=== PATIENT | female | born 1965 | race African-American/Black ===

== ENCOUNTER 2018-06-18 14:32 | Emergency (ER) | payer MEDICAID ==
[~2018-06-18] VITALS: Ht 165.1 cm; Wt 63.5 kg
[~2018-06-18 14:32] MED LIST: ABILIFY5 MG PO; MOTRIN400 MG PO
[2018-06-18] MEDS ORDERED: SEROQUEL100 MG ORAL (14:52)
[2018-06-18] MEDS ORDERED: Morphine Sulfate 4mg/ml Inj (IV/IM USE ONLY) IVP ONE (15:15)
[2018-06-18] MEDS ORDERED: Methocarbamol 750mg tab ORAL ONE (15:15)
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
[2018-06-18 15:22] VITALS: BP 129/87
--- NOTE | 2018-06-18 15:36 | Diagnostic Imaging Report ---
Indication: Headache Technique: Contiguous 5 mm thick transaxial imaging of the head obtained in a Siemens Sensation [address] scanner. Soft tissue and bone windows generated. Automatic Exposure Control was utilized. Total Dose length Product (DLP): 1414.[address] Dose Index Volume (CTDIvol): 70.38 mGy Comparison: none Findings: The size and configuration of the cortical sulci, basal cisterns, and ventricles are within normal limits for age. There is no mass effect, midline shift, or edema identified. There is no evidence of acute hemorrhage or abnormal intra-axial or extra-axial fluid collections. The bones and soft tissues are unremarkable. Impression: No mass effect, edema or acute bleed. The CT scanner at [facility] is accredited by the [employer] and the scans are performed using dose optimization techniques as appropriate to a performed exam including Automatic Exposure control.
--- NOTE | 2018-06-18 15:50 | Diagnostic Imaging Report ---
Indication: Neck pain. Technique: Continuous helical imaging of the cervical spine was obtained transaxially from the skull base to the upper thoracic spine. 2-D coronal and sagittal reformatted images were obtained. Automatic Exposure Control was utilized. Total Dose length Product (DLP): 284.[address] Dose Index Volume (CTDIvol): 13.53 mGy Comparison: None Findings: There is narrowing of the C5-6 disc with moderate endplate osteophyte formation, mild retrolisthesis and the narrowing of the neural foramen. C4-5 shows a mild anterolisthesis and is associated with uncovertebral spur formation and bilateral foraminal stenosis. There is some breathing motion artifact present on the examination. There is no fracture or soft tissue swelling identified. IMPRESSION: No acute injury appreciated. Degenerative spondylosis as described above at C4-5 and C5-6. Motion artifacts The CT scanner at [facility] is accredited by the [employer] and the scans are performed using dose optimization techniques as appropriate to a performed exam including Automatic Exposure control.
[2018-06-18 15:53] LABS: BASOPHILS % (AUTO) 1.2 % (0.0-2.0); EOSINOPHILS % (AUTO) 1.3 % (0.0-3.0); HEMATOCRIT 43.5 % (37.0-47.0); HEMOGLOBIN 14.3 G/DL (12.0-16.0); LYMPHOCYTES % (AUTO) 25.4 % (20.0-45.0); MEAN CORPUSCULAR VOLUME 94 FL (80-99); MONOCYTES % (AUTO) 7.2 % (1.0-10.0); NEUTROPHILS % (AUTO) 64.9 % (45.0-75.0); PLATELET COUNT 298 K/UL (150-450); RED BLOOD COUNT 4.63 M/UL (4.20-5.40); RED CELL DISTRIBUTION WIDTH 12.2 % (11.6-14.8)
[2018-06-18 15:58] LABS: ANION GAP 11 mmol/L (5-15); BLOOD UREA NITROGEN 11 mg/dL (7-18); CALCIUM 10.7 MG/DL (8.5-10.1); CARBON DIOXIDE 22 MMOL/L (21-32); CHLORIDE 108 MMOL/L (98-107); CREATININE 0.9 MG/DL (0.55-1.30); POTASSIUM 4.3 MMOL/L (3.5-5.1); SODIUM 140 MMOL/L (136-145)
[2018-06-18 16:03] LABS: ALANINE AMINOTRANSFERASE 18 U/L (12-78); ALBUMIN 3.6 G/DL (3.4-5.0); ALBUMIN/GLOBULIN RATIO 0.9 (1.0-2.7); ALKALINE PHOSPHATASE 140 U/L (46-116); ASPARTATE AMINO TRANSFERASE 20 U/L (15-37); BILIRUBIN,TOTAL 0.4 MG/DL (0.2-1.0)
[2018-06-18 16:50] LABS: APPEARANCE,URINE CLEAR; BILIRUBIN, URINE NEGATIVE (NEGATIVE); COLOR,URINE PALE YELLOW; GLUCOSE, URINE (UA) NEGATIVE (NEGATIVE); KETONES,URINE NEGATIVE (NEGATIVE); LEUKOCYTE ESTERASE ,URINE 1+ (NEGATIVE); NITRITE,URINE NEGATIVE (NEGATIVE); PH,URINE 7 (4.5-8.0); PROTEIN,URINE NEGATIVE (NEGATIVE); UROBILINOGEN,URINE NORMAL MG/DL (0.0-1.0)
[2018-06-18] MEDS ORDERED: ROBAXIN-750750 MG PO (16:57)
[2018-06-18] MEDS ORDERED: TRAMADOL HCL50 MG ORAL (16:57)
[2018-06-18 17:15] VITALS: BP 127/80
== END 2018-06-18 17:15 | disposition home or self-care (01) ==
LOC: EMR 15:16
DX: S16.1XXA Strain of muscle, fascia and tendon at neck level, initial encounter (principal); V43.52XA Car driver injured in collision with other type car in traffic accident, initial encounter; Y92.414 Local residential or business street as the place of occurrence of the external cause; F41.9 Anxiety disorder, unspecified; R51 Headache; M47.812 Spondylosis without myelopathy or radiculopathy, cervical region
CPT/HCPCS: 36415; 70450; 72125; 80053; 80307; 81003; 85025; 96374; 99284; J2270

== ENCOUNTER 2018-08-24 16:41 | Emergency (ER) | payer MEDICAID ==
[~2018-08-24] VITALS: Ht 167.6 cm; Wt 90.7 kg
[2018-08-24 16:22] VITALS: BP 170/94
[~2018-08-24 16:41] MED LIST changes: +ABILIFY2 MG ORAL; +ROBAXIN-750750 MG PO; +SEROQUEL100 MG ORAL; +TRAMADOL HCL50 MG ORAL
[2018-08-24] MEDS ORDERED: Tetanus/Diptheria/Pertussis Vaccine 0.5ml Syr IM ONE (17:00)
[2018-08-24] MEDS ORDERED: oxyCODONE HCL/Acetaminophen 5/325mg PO ONE (17:00)
[2018-08-24] MEDS ORDERED: Neosporin Oint Ud Pkt TOP ONE (17:00)
[2018-08-24] MEDS ORDERED: Ketorolac 60mg Inj IM ONE (17:00)
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
[2018-08-24 17:08] LABS: APPEARANCE,URINE CLOUDY; BILIRUBIN, URINE NEGATIVE (NEGATIVE); COLOR,URINE AMBER; GLUCOSE, URINE (UA) NEGATIVE (NEGATIVE); KETONES,URINE 2+ (NEGATIVE); LEUKOCYTE ESTERASE ,URINE 1+ (NEGATIVE); NITRITE,URINE POSITIVE (NEGATIVE); PH,URINE 5 (4.5-8.0); PROTEIN,URINE 2+ (NEGATIVE); UROBILINOGEN,URINE 1 MG/DL (0.0-1.0)
[2018-08-24] MEDS ORDERED: HYDROmorphone 1mg/ml Carpuject IVP ONE (19:00)
[2018-08-24 19:37] LABS: HEMATOCRIT 47.1 % (37.0-47.0); HEMOGLOBIN 13.2 G/DL (12.0-16.0); MEAN CORPUSCULAR VOLUME 98 FL (80-99); RED BLOOD COUNT 4.81 M/UL (4.20-5.40); RED CELL DISTRIBUTION WIDTH 12.1 % (11.6-14.8); WHITE BLOOD COUNT 10.5 K/UL (4.8-10.8)
[2018-08-24 19:58] VITALS: BP 143/100
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
[2018-08-24] MEDS ORDERED: cefTRIAXone 1 GM in NS 55 ML IVPB ONE (20:15)
[2018-08-24 20:16] LABS: ANION GAP 10 mmol/L (5-15); BLOOD UREA NITROGEN 12 mg/dL (7-18); CALCIUM 10.7 MG/DL (8.5-10.1); CARBON DIOXIDE 24 MMOL/L (21-32); CHLORIDE 101 MMOL/L (98-107); CREATININE 0.6 MG/DL (0.55-1.30); SODIUM 135 MMOL/L (136-145)
[2018-08-24 20:21] LABS: ALANINE AMINOTRANSFERASE 20 U/L (12-78); ALBUMIN/GLOBULIN RATIO 1.1 (1.0-2.7); ALKALINE PHOSPHATASE 119 U/L (46-116); ASPARTATE AMINO TRANSFERASE 35 U/L (15-37); BILIRUBIN,TOTAL 0.6 MG/DL (0.2-1.0)
--- NOTE | 2018-08-24 21:08 | Diagnostic Imaging Report ---
EXAM: XR Chest, 1 View CLINICAL HISTORY: PREOP TECHNIQUE: Frontal view of the chest. COMPARISON: No relevant prior studies available. FINDINGS: Lungs: Unremarkable. No consolidation. Pleural space: Unremarkable. No pneumothorax. Heart: Unremarkable. No cardiomegaly. Mediastinum: Unremarkable. Bones/joints: Unremarkable. IMPRESSION: No acute cardiopulmonary disease.
[2018-08-24 21:33] LABS: PLATELET COUNT 179 K/UL (150-450)
[2018-08-24] MEDS ORDERED: Hydromorphone 0.5mg/0.5ml inj IVP ONE (22:30)
[2018-08-24 23:00] VITALS: BP 141/98
[2018-08-25 01:38] VITALS: BP 136/92
[2018-08-25 02:23] VITALS: BP 129/80
[2018-08-25 02:24] VITALS: BP 129/80
== END 2018-08-25 02:28 | disposition short-term general hospital (02) ==
LOC: EDBD 16:41 → EMR 18:37
DX: S82.291A Other fracture of shaft of right tibia, initial encounter for closed fracture (principal); S82.491A Other fracture of shaft of right fibula, initial encounter for closed fracture; W18.49XA Other slipping, tripping and stumbling without falling, initial encounter; Y92.89 Other specified places as the place of occurrence of the external cause; Z23 Encounter for immunization; F19.10 Other psychoactive substance abuse, uncomplicated
CPT/HCPCS: 29505; 36415; 71045; 73590; 80053; 80307; 81001; 85007; 85025; 85610; 85730; 86850; 86900; 86901; 87086; 87181; 90471; 90715; 96365; 96372; 96375; 96376; 99285; J0696; J1170

== ENCOUNTER 2019-09-01 12:01 | Emergency (ER) | payer MEDICAID ==
[~2019-09-01] VITALS: Ht 167.6 cm; Wt 63.5 kg
[2019-09-01 12:03] VITALS: BP 140/79
--- NOTE | 2019-09-01 12:03 | NUR ---
ED Nurse Note: PT BROUGHT IN BY AMBULANCE FROM A CLINIC FOR C/O GENERALIZED WEAKNESS AND POOR PO INTAKE X 2 WEEKS. VSS
[2019-09-01] MEDS ORDERED: Acetaminophen 500mg (ES) tab ORAL ONE (12:15)
--- NOTE | 2019-09-01 12:15 | NUR ---
ED Nurse Note: PT STATED SHE IS VERY HUNGRY AND THIRSTY. PT ATE 2 SANDWICH, 3 JUICE BOX AND 120ML H20.
--- NOTE | 2019-09-01 12:30 | NUR ---
ED Nurse Note: CXR DONE AT BEDSIDE.
--- NOTE | 2019-09-01 12:45 | Diagnostic Imaging Report ---
Indication: Chest pain Technique: One view of the chest Comparison: 08/24/2018 Findings: Lungs and pleural spaces are clear. Heart size is normal. Impression: No acute process
--- NOTE | 2019-09-01 12:46 | NUR ---
ED Nurse Note: PT UNABLE TO PROVIDE URINE SAMPLE AT THIS TIME. IVF IS RUNNING AT THIS TIME. PT IS AWARE URINE SAMPLE I NEEDED AND WILL NOTIFY STAFF WHEN SHE IS READY TO PROVIDE SO.
[2019-09-01 12:50] LABS: BASOPHILS % (AUTO) 1.1 % (0.0-2.0); EOSINOPHILS % (AUTO) 0.3 % (0.0-3.0); HEMATOCRIT 53.3 % (37.0-47.0); LYMPHOCYTES % (AUTO) 18.6 % (20.0-45.0); MEAN CORPUSCULAR VOLUME 94 FL (80-99); MONOCYTES % (AUTO) 7.3 % (1.0-10.0); NEUTROPHILS % (AUTO) 72.7 % (45.0-75.0); PLATELET COUNT 269 K/UL (150-450); RED BLOOD COUNT 5.66 M/UL (4.20-5.40); RED CELL DISTRIBUTION WIDTH 10.7 % (11.6-14.8); WHITE BLOOD COUNT 11.9 K/UL (4.8-10.8)
[2019-09-01 13:05] LABS: ALANINE AMINOTRANSFERASE 18 U/L (12-78); ALBUMIN 4.3 G/DL (3.4-5.0); ALKALINE PHOSPHATASE 205 U/L (46-116); ASPARTATE AMINO TRANSFERASE 13 U/L (15-37); BILIRUBIN,TOTAL 0.5 MG/DL (0.2-1.0); BLOOD UREA NITROGEN 16 mg/dL (7-18); CREATININE 0.9 MG/DL (0.55-1.30)
[2019-09-01 13:10] LABS: ANION GAP 9 mmol/L (5-15); CALCIUM 12.7 MG/DL (8.5-10.1); CARBON DIOXIDE 27 MMOL/L (21-32); CHLORIDE 101 MMOL/L (98-107); SODIUM 137 MMOL/L (136-145)
--- NOTE | 2019-09-01 13:10 | NUR ---
ED Nurse Note: DC planning to snf @ [address] [facility]. RN spoke with Eliot at the snf whom said they would accept her upon DC. Tap card given to patient for discharge.
[2019-09-01] MEDS ORDERED: Morphine Sulfate 4mg/ml Inj (IV USE ONLY) IVP ONE (13:30)
--- NOTE | 2019-09-01 14:13 | Emergency Room Report ---
History of Present Illness General Chief Complaint: Generalized Weakness Source: Patient, Medical Record, EMS Present Illness HPI 54-year-old female presents ED for evaluation. Brought in by EMS from Street. States she has been feeling weak with body aches and cough. Pain is dull, 9 out of 10, nonradiating. Denies chest pain or shortness of breath. Denies fevers or chills. No other aggravating relieving factors. Denies any other associated symptoms Allergies: Coded Allergies: IBUPROFEN (Verified Allergy, Unknown, 09/01/19) Patient History Past Medical History: none Pertinent Family History: none Social History: Reports: drug use; Denies: smoking, alcohol use Now: No Immunizations: UTD Reviewed Nursing Documentation: PMH: Agreed; PSxH: Agreed Nursing Documentation-PMH History Of Psychiatric Problem: Yes - substance abuse Review of Systems All Other Systems: negative except mentioned in HPI Physical Exam Vital Signs Date Time Temp Pulse Resp B/P (MAP) Pulse Ox O2 Delivery O2 Flow Rate FiO2 09/01/19 11:56 98.8 118 20 118/84 (95) 98 Room Air Sp02 EP Interpretation: reviewed, normal General Appearance: no apparent distress, alert, GCS 15, non-toxic Head: normocephalic, atraumatic Eyes: bilateral eye normal inspection, bilateral eye PERRL ENT: hearing grossly normal, normal pharynx, no angioedema, normal voice Neck: full range of motion, supple/symm/no masses Respiratory: chest non-tender, lungs clear, normal breath sounds, speaking full sentences Cardiovascular #1: regular rate, rhythm, no edema Cardiovascular #2: 2+ carotid (R), 2+ carotid (L), 2+ radial (R), 2+ radial (L) , 2+ dorsalis pedis (R), 2+ dorsalis pedis (L) Gastrointestinal: normal bowel sounds, non tender, soft, non-distended, no guarding, no rebound Rectal: deferred Genitourinary: normal inspection, no CVA tenderness Musculoskeletal: back normal, normal range of motion, gait/station normal, non- tender Neurologic: alert, motor strength/tone normal, oriented x3, sensory intact, responsive, speech normal Psychiatric: judgement/insight normal, memory normal, mood/affect normal, no suicidal/homicidal ideation Reflexes: 3+ bicep (R), 3+ bicep (L), 3+ tricep (R), 3+ tricep (L), 3+ knee (R) , 3+ knee (L) Lymphatic: no adenopathy Medical Decision Making Homeless Attestation I, The treating physician Dr. Randall, have assessed and agrees that patient is medically stable for discharge to an outpatient disposition. Diagnostic Impression: Primary Impression: Episode of generalized weakness Additional Impression: Flu-like symptoms ER Course Hospital Course 54-year-old female presents to ED complaining of bodyaches, cough, weakness Differential diagnoses include: URI, bronchitis, asthma/COPD, pneumonia Clinical course Patient placed on stretcher. After initial history, physical exam reveals a middle aged female in no acute distress. Bilateral TM unremarkable. No pharyngeal erythema. No tonsillar exudates. No lymphadenopathy. lungs clear. I ordered labs, IV fluids, Tylenol, chest x-ray. Labs reviewed- no leukocytosis, hemoglobin/hematocrit stable, electrolytes okay flu swab negative Chest x-ray shows no focal consolidation I discussed findings with patient. Work-up unremarkable. All stable. Patient can be discharged. States that she does not have a place to stay. Will provide referrals. Homeless checklist completed. We also assisted patient in providing her prescriptions. Safe for discharge for close outpatient follow- up. I will provide referrals Diagnosis - episode of generalized weakness, flu like symptoms Stable and discharged home with prescriptions for Tylenol, tamiflu, amoxicillin. Instructed to followup with PMD. Return to ED if symptoms recur or worsen Labs Test 09/01/19 12:29 White Blood Count 11.9 K/UL (4.8-10.8) Red Blood Count 5.66 M/UL (4.20-5.40) Hemoglobin 18.0 G/DL (12.0-16.0) Hematocrit 53.3 % (37.0-47.0) Mean Corpuscular Volume 94 FL (80-99) Mean Corpuscular Hemoglobin 31.9 PG (27.0-31.0) Mean Corpuscular Hemoglobin Concent 33.8 G/DL (32.0-36.0) Red Cell Distribution Width 10.7 % (11.6-14.8) Platelet Count 269 K/UL (150-450) Mean Platelet Volume 7.8 FL (6.5-10.1) Neutrophils (%) (Auto) 72.7 % (45.0-75.0) Lymphocytes (%) (Auto) 18.6 % (20.0-45.0) Monocytes (%) (Auto) 7.3 % (1.0-10.0) Eosinophils (%) (Auto) 0.3 % (0.0-3.0) Basophils (%) (Auto) 1.1 % (0.0-2.0) Sodium Level 137 MMOL/L (136-145) Potassium Level 4.0 MMOL/L (3.5-5.1) Chloride Level 101 MMOL/L (98-107) Carbon Dioxide Level 27 MMOL/L (21-32) Anion Gap 9 mmol/L (5-15) Blood Urea Nitrogen 16 mg/dL (7-18) Creatinine 0.9 MG/DL (0.55-1.30) Estimat Glomerular Filtration Rate > 60 mL/min (>60) Glucose Level 115 MG/DL (74-106) Calcium Level 12.7 MG/DL (8.5-10.1) Total Bilirubin 0.5 MG/DL (0.2-1.0) Aspartate Amino Transf (AST/SGOT) 13 U/L (15-37) Alanine Aminotransferase (ALT/SGPT) 18 U/L (12-78) Alkaline Phosphatase 205 U/L (46-116) Total Protein 8.8 G/DL (6.4-8.2) Albumin 4.3 G/DL (3.4-5.0) Globulin 4.5 g/dL Albumin/Globulin Ratio 1.0 (1.0-2.7) Chest X-Ray Diagnostic Results Chest X-Ray Diagnostic Results : Chest X-Ray Ordered: Yes # of Views/Limited/Complete: 1 View Indication: Shortness of Breath EP Interpretation: Yes Interpretation: no consolidation, no effusion, no pneumothorax, no acute cardiopulmonary disease Impression: No acute disease Electronically Signed by: Electronically signed by Sachin Randall MD Last Vital Signs Date Time Temp Pulse Resp B/P (MAP) Pulse Ox O2 Delivery O2 Flow Rate FiO2 09/01/19 12:03 98.8 117 20 140/79 98 Room Air Status: improved Disposition: HOME, SELF-CARE Condition: Serious Scripts Amoxicillin* (AMOXIL*) 500 Mg Capsule 500 MG ORAL THREE TIMES A DAY, #21 CAP Prov: Sachin Randall MD 09/01/19 Oseltamivir Phosphate (Tamiflu) 75 Mg Capsule 75 MG ORAL TWICE A DAY for 5 Days, CAP Prov: Sachin Randall MD 09/01/19 Acetaminophen* (TYLENOL EXTRA STRENGTH*) 500 Mg Tablet 500 MG ORAL Q8H PRN for Prn Headache/Temp > 101, #30 TAB 0 Refills Prov: Sachin Randall MD 09/01/19 Referrals: NON PHYSICIAN (PCP) Sachin Randall MD Sep 01, 2019 14:13
[2019-09-01] MEDS ORDERED: TAMIFLU75 MG ORAL (14:22)
[2019-09-01] MEDS ORDERED: TYLENOL EXTRA500 MG ORAL (14:22)
[2019-09-01] MEDS ORDERED: AMOXICILLIN500 MG ORAL (14:22)
--- NOTE | 2019-09-01 15:15 | NUR ---
ED Nurse Note:faxed prescription to [facility]- they will deliver medication to ER in 30 min
[2019-09-01 16:32] VITALS: BP 135/84
--- NOTE | 2019-09-01 16:32 | NUR ---
ER DISCHARGE NOTE: Patient is cleared to be discharged per ERMD, pt is aox4, on room air, with stable vital signs. pt was given dc and prescription instructions, pt was able to verbalize understanding, pt id band and iv site removed without complications. Prescription of amoxicillin was brought over by [facility] and given to patient. pt is able to ambulate with steady gait. pt took all belongings.
== END 2019-09-01 16:34 | disposition home or self-care (01) ==
LOC: EDBD 12:01 → EMR 12:40
DX: R53.1 Weakness (principal); R05 Cough; Z88.6 Allergy status to analgesic agent
CPT/HCPCS: 36415; 71045; 80053; 85025; 86710; 96360; Z7502; 99284

== ENCOUNTER 2020-01-30 14:44 | Emergency (ER) | payer MEDICAID ==
[~2020-01-30] VITALS: Ht 167.6 cm; Wt 81.6 kg
[~2020-01-30 14:44] MED LIST changes: +AMOXICILLIN500 MG ORAL; +TAMIFLU75 MG ORAL; +TYLENOL EXTRA500 MG ORAL
[2020-01-30 14:50] VITALS: BP 138/105
[2020-01-30] MEDS ORDERED: Morphine Sulfate 2mg/ml Inj(IV/IM USE ONLY) IVP ONE (15:15)
[2020-01-30] MEDS ORDERED: Omnipaque-300 100ml vial INJ PRN (15:15)
--- NOTE | 2020-01-30 15:34 | Emergency Room Report ---
History of Present Illness General Chief Complaint: Abdominal Pain Present Illness HPI Disclaimer: Please note that this report is being documented using [employer] technology. This can lead to erroneous entry secondary to incorrect interpretation by the dictating instrument. HPI: 54-year-old female no reported past medical history presented from the street for abdominal pain with nausea. She states that over the past week she has not had a bowel movement. She has passed some gas. Today she drank approximately 1/2 gallon of orange juice and then developed epigastric abdominal pain. She denies any fever cough or shortness of breath. Pain is currently 10 out of 10. Presented by EMS. PMH: Patient denies any significant past medical history PSH: Reviewed Social Hx: Patient smokes marijuana, cigarettes, did drink half a beer today. Allergies: Coded Allergies: ACETAMINOPHEN (Verified Allergy, Unknown, 01/30/20) IBUPROFEN (Verified Allergy, Unknown, 09/01/19) COVID-19 Screening Contact w/high risk pt: No Recent Travel to affected area: No Experienced COVID-19 symptoms?: No COVID-19 Testing performed STUDENT DEVELOPMENT SPECIALIST: No Patient History Last Menstrual Period: 6 months ago Now: No Reviewed Nursing Documentation: PMH: Agreed; PSxH: Agreed Nursing Documentation-PMH Past Medical History: No History, Except For Review of Systems All Other Systems: negative except mentioned in HPI Physical Exam Vital Signs Date Time Temp Pulse Resp B/P (MAP) Pulse Ox O2 Delivery O2 Flow Rate FiO2 01/30/20 14:46 97.5 102 14 138/105 (116) 97 Room Air Sp02 EP Interpretation: reviewed, normal General Appearance: well appearing, no apparent distress Head: normocephalic, atraumatic Eyes: bilateral eye PERRL, bilateral eye EOMI ENT: hearing grossly normal, moist mucus membranes Neck: full range of motion, supple Respiratory: lungs clear, normal breath sounds, no rhonchi, no respiratory distress, no retraction, no wheezing Cardiovascular #1: normal peripheral pulses, no murmur, tachycardia Gastrointestinal: no guarding, other - Abdomen distended, mildly tender, no rebound or guarding Neurologic: alert, oriented x3, no focal defects Skin: normal color, warm/dry Medical Decision Making Diagnostic Impression: Primary Impression: Abdominal pain ER Course MDM: Differential diagnosis included but not limited to constipation, obstruction, gastritis to name a few Clinical course-IV, IV fluids, Zofran, pain control, CT scan of the abdomen and pelvis ordered CT scan abdomen pelvis did not demonstrate any acute inflammatory pathology. Gaseous distention of the colon was noted. On my reassessment patient no acute distress. She was stable for discharge to self- care. As she was complaining of constipation she was discharged with laxative. Labs - Laboratory Tests Test 01/30/20 15:30 01/30/20 16:10 White Blood Count 9.4 K/UL (4.8-10.8) Red Blood Count 4.49 M/UL (4.20-5.40) Hemoglobin 14.1 G/DL (12.0-16.0) Hematocrit 45.3 % (37.0-47.0) Mean Corpuscular Volume 101 FL (80-99) H Mean Corpuscular Hemoglobin 31.3 PG (27.0-31.0) H Mean Corpuscular Hemoglobin Concent 31.1 G/DL (32.0-36.0) L Red Cell Distribution Width 13.3 % (11.6-14.8) Platelet Count 257 K/UL (150-450) Mean Platelet Volume 7.8 FL (6.5-10.1) Neutrophils (%) (Auto) 49.5 % (45.0-75.0) Lymphocytes (%) (Auto) 35.8 % (20.0-45.0) Monocytes (%) (Auto) 10.1 % (1.0-10.0) H Eosinophils (%) (Auto) 2.7 % (0.0-3.0) Basophils (%) (Auto) 1.9 % (0.0-2.0) Prothrombin Time 10.3 SEC (9.30-11.50) Prothrombin Time INR 0.9 (0.9-1.1) Activated Partial Thromboplast Time 26 SEC (23-33) Sodium Level 142 MMOL/L (136-145) Potassium Level 4.8 MMOL/L (3.5-5.1) Chloride Level 106 MMOL/L (98-107) Carbon Dioxide Level 28 MMOL/L (21-32) Anion Gap 8 mmol/L (5-15) Blood Urea Nitrogen 13 mg/dL (7-18) Creatinine 1.0 MG/DL (0.55-1.30) Estimated Glomerular Filtration Rate > 60 mL/min (>60) Glucose Level 86 MG/DL (74-106) Calcium Level 11.6 MG/DL (8.5-10.1) H Total Bilirubin 0.2 MG/DL (0.2-1.0) Aspartate Amino Transferase (AST) 19 U/L (15-37) Alanine Aminotransferase (ALT) 19 U/L (12-78) Alkaline Phosphatase 167 U/L (46-116) H Total Protein 7.3 G/DL (6.4-8.2) Albumin 3.8 G/DL (3.4-5.0) Globulin 3.5 g/dL Albumin/Globulin Ratio 1.1 (1.0-2.7) Lipase 106 U/L (73-393) Urine Color Pale yellow Urine Appearance Slightly cloudy Urine pH 7 (4.5-8.0) Urine Specific [place] 1.030 (1.005-1.035) Urine Protein Negative (NEGATIVE) Urine Glucose (UA) Negative (NEGATIVE) Urine Ketones 1+ (NEGATIVE) H Urine Blood 2+ (NEGATIVE) H Urine Nitrite Negative (NEGATIVE) Urine Bilirubin Negative (NEGATIVE) Urine Urobilinogen Normal MG/DL (0.0-1.0) Urine Leukocyte Esterase 1+ (NEGATIVE) H Urine RBC 10-15 /HPF (0 - 2) H Urine WBC 5-10 /HPF (0 - 2) H Urine Squamous Epithelial Cells Moderate /LPF (NONE/OCC) H Urine Bacteria Few /HPF (NONE) Plan is to discharge home with outpatient follow-up Last Vital Signs Date Time Temp Pulse Resp B/P (MAP) Pulse Ox O2 Delivery O2 Flow Rate FiO2 01/30/20 14:46 97.5 102 14 138/105 (116) 97 Room Air Disposition: HOME, SELF-CARE Condition: Improved Scripts Acetaminophen* (TYLENOL EXTRA STRENGTH*) 500 Mg Tablet 500 MG ORAL Q8H PRN for Prn Headache/Temp > 101, #30 TAB 0 Refills Prov: Russ Richardson M.D. 01/30/20 Ondansetron (Zofran) 4 Mg Tablet 4 MG ORAL Q8H PRN for Nausea & Vomiting, #10 TAB 0 Refills Prov: Russ Richardson M.D. 01/30/20 Magnesium Citrate (MAGNESIUM CITRATE) 296 Ml Solution 296 ML PO ONCE for please drink one bottle, #1 B Prov: Russ Richardson M.D. 01/30/20 Russ Richardson M.D. Jan 30, 2020 15:34
[2020-01-30 16:05] LABS: INR 0.9 (0.9-1.1)
[2020-01-30 16:08] LABS: ANION GAP 8 mmol/L (5-15); BLOOD UREA NITROGEN 13 mg/dL (7-18); CALCIUM 11.6 MG/DL (8.5-10.1); CARBON DIOXIDE 28 MMOL/L (21-32); CHLORIDE 106 MMOL/L (98-107); POTASSIUM 4.8 MMOL/L (3.5-5.1); SODIUM 142 MMOL/L (136-145)
[2020-01-30 16:12] LABS: ALANINE AMINOTRANSFERASE 19 U/L (12-78); ALBUMIN 3.8 G/DL (3.4-5.0); ALBUMIN/GLOBULIN RATIO 1.1 (1.0-2.7); ALKALINE PHOSPHATASE 167 U/L (46-116); ASPARTATE AMINO TRANSFERASE 19 U/L (15-37); BASOPHILS % (AUTO) 1.9 % (0.0-2.0); BILIRUBIN,TOTAL 0.2 MG/DL (0.2-1.0); EOSINOPHILS % (AUTO) 2.7 % (0.0-3.0); HEMATOCRIT 45.3 % (37.0-47.0); HEMOGLOBIN 14.1 G/DL (12.0-16.0); LYMPHOCYTES % (AUTO) 35.8 % (20.0-45.0); MEAN CORPUSCULAR VOLUME 101 FL (80-99); MONOCYTES % (AUTO) 10.1 % (1.0-10.0); NEUTROPHILS % (AUTO) 49.5 % (45.0-75.0); PLATELET COUNT 257 K/UL (150-450); RED BLOOD COUNT 4.49 M/UL (4.20-5.40); RED CELL DISTRIBUTION WIDTH 13.3 % (11.6-14.8); WHITE BLOOD COUNT 9.4 K/UL (4.8-10.8)
[2020-01-30 16:40] VITALS: BP 134/92
[2020-01-30 16:54] LABS: BILIRUBIN, URINE NEGATIVE (NEGATIVE); COLOR,URINE PALE YELLOW; GLUCOSE, URINE (UA) NEGATIVE (NEGATIVE); KETONES,URINE 1+ (NEGATIVE); NITRITE,URINE NEGATIVE (NEGATIVE); PH,URINE 7 (4.5-8.0); PROTEIN,URINE NEGATIVE (NEGATIVE); UROBILINOGEN,URINE NORMAL MG/DL (0.0-1.0)
[2020-01-30 17:09] VITALS: BP 137/84
[2020-01-30 17:09] LABS: APPEARANCE,URINE SLIGHTLY CLOUDY; LEUKOCYTE ESTERASE ,URINE 1+ (NEGATIVE)
--- NOTE | 2020-01-30 17:29 | Diagnostic Imaging Report ---
EXAM: CT Abdomen and Pelvis With Intravenous Contrast CLINICAL HISTORY: ABD PAIN TECHNIQUE: Axial computed tomography images of the abdomen and pelvis with intravenous contrast. CTDI is 6.5 mGy and DLP is 321.1 mGy-cm. One or more of the following dose reduction techniques were used: automated exposure control, adjustment of the mA and/or kV according to patient size, use of iterative reconstruction technique. COMPARISON: No relevant prior studies available. FINDINGS: Lung bases: Unremarkable. No mass. No consolidation. ABDOMEN: Liver: Unremarkable. No mass. Gallbladder and bile ducts: Unremarkable. No calcified stones. No ductal dilation. Pancreas: Unremarkable. No mass. No ductal dilation. Spleen: Unremarkable. No splenomegaly. Adrenals: Unremarkable. No mass. Kidneys and ureters: Unremarkable. No solid mass. No hydronephrosis. Stomach and bowel: Mild gaseous distention of the right hemicolon without inflammatory changes or obstruction. Mildly distended stomach. No inflammatory changes along the GI tract. PELVIS: Appendix: Appendix not visualized however there are no secondary signs of acute appendicitis. Bladder: Unremarkable. No mass. Reproductive: Unremarkable as visualized. ABDOMEN and PELVIS: Intraperitoneal space: Unremarkable. No free air. No significant fluid collection. Bones/joints: No acute fracture. No dislocation. Soft tissues: Unremarkable. Vasculature: Unremarkable. No abdominal aortic aneurysm. Lymph nodes: Unremarkable. No enlarged lymph nodes. IMPRESSION: 1. No acute abnormality. 2. Mild gaseous distention of the right hemicolon without inflammatory changes or obstruction.
--- NOTE | 2020-01-30 17:32 | Diagnostic Imaging Report ---
Indication: Cough Technique: One view of the chest Comparison: none Findings: Lungs and pleural spaces are clear. The heart size is normal. No significant change Impression: Negative
[2020-01-30] MEDS ORDERED: ZOFRAN4 MG ORAL (17:48)
[2020-01-30] MEDS ORDERED: MAGNESIUM CITR296 M1 PO (17:48)
[2020-01-30] MEDS ORDERED: TYLENOL EXTRA500 MG ORAL (17:48)
[2020-01-30 18:26] VITALS: BP 128/72
== END 2020-01-30 18:26 | disposition home or self-care (01) ==
LOC: EDBD 14:44 → EMR 15:00
DX: R10.9 Unspecified abdominal pain (principal); R11.0 Nausea; Z88.6 Allergy status to analgesic agent; F17.210 Nicotine dependence, cigarettes, uncomplicated; F12.90 Cannabis use, unspecified, uncomplicated; R00.0 Tachycardia, unspecified
CPT/HCPCS: 36415; 71045; 74177; 80053; 81003; 83690; 85025; 85610; 85730; 96361; 96374; 96375; J2270; J2405; J7030; Q9967; Z7502; 99284